=== PATIENT | female | born 1970 | race Caucasian/White ===

== ENCOUNTER → 2018-09-26 | Outpatient (CLI) | payer OTHER | END | disposition home or self-care (01) | LOC: CFH 08:17 | PROVIDERS: ATTEND Nurse Practitioner | DX: R07.89 Other chest pain (principal) ==

== ENCOUNTER 2020-11-27 10:56 | Outpatient (CLI) | payer OTHER | END 2020-11-27 23:59 | disposition home or self-care (01) | LOC: CFH 10:56 | PROVIDERS: ATTEND Obstetrics & Gynecology | DX: Z12.31 Encounter for screening mammogram for malignant neoplasm of breast (principal) | CPT/HCPCS: 77067 ==